=== PATIENT | female | born 1975 | race Caucasian/White ===

== ENCOUNTER 2021-10-29 17:44 | Emergency (ER) | payer BC ==
[2021-10-29] MEDS ORDERED: Sodium Chloride 0.9% 10 ML Syringe FLUSH PRN (17:55)
[2021-10-29] MEDS ORDERED: Aspirin 81 MG Tab.Chew PO ONE (17:55)
[2021-10-29 18:56] LABS: CORONAVIRUS COVID-19 NAA NEGATIVE (NEGATIVE)
== END 2021-10-29 20:39 | disposition home or self-care (01) ==
LOC: JD.ED 17:44
DX: R07.89 Other chest pain (principal); Z20.822 Contact with and (suspected) exposure to COVID-19
CPT/HCPCS: 0241U; 36415; 71045; 80053; 83735; 83880; 84484; 84702; 85025; 85379; 85610; 93005; 94762; 99285; A9270; 93010

== ENCOUNTER 2025-08-07 12:06 | Emergency (ER) | payer BC, OTHER ==
[2025-08-07] MEDS ORDERED: Sodium Chloride 0.9% 10 ML Syringe FLUSH PRN (12:33)
[2025-08-07 12:54] LABS: BASOPHILS ABSOLUTE AUTO 0.1 K/mm3 (0.0-0.2); BASOPHILS PERCENT AUTO 1.1 % (0.0-1.0); EOSINOPHILS ABSOLUTE AUTO 0.1 K/mm3 (0.0-0.4); EOSINOPHILS PERCENT AUTO 1.5 % (0.0-6.0); IMMATURE GRAN ABSOLUTE AUTO 0.06 K/mm3 (0.00-0.05); IMMATURE GRAN PERCENT AUTO 0.8 % (0.0-0.4); LYMPHOCYTES ABSOLUTE AUTO 2.1 K/mm3 (1.0-4.8); LYMPHOCYTES PERCENT AUTO 26.6 % (24.0-44.0); MEAN PLATELET VOLUME 8.6 fl (9.4-12.3); MONOCYTES ABSOLUTE AUTO 0.9 K/mm3 (0.0-0.8); MONOCYTES PERCENT AUTO 11.3 % (0.0-8.0); NEUTROPHILS ABSOLUTE AUTO 4.6 K/mm3 (1.8-7.7); NEUTROPHILS PERCENT AUTO 58.7 % (41.0-71.0); NRBC ABSOLUTE 0.00 (0.00-0.02); NRBC PERCENT 0.0 % (0.0-0.2); PLATELET COUNT,PLT 255 K/mm3 (150-400); RED BLOOD CELL COUNT 4.40 M/mm3 (4.10-5.30); WHITE BLOOD CELL COUNT,WBC 7.89 K/mm3 (3.9-11.3)
[2025-08-07 12:55] LABS: APPEARANCE,URINE CLEAR (Clear); GLUCOSE,URINE NEGATIVE (Negative); OCCULT BLOOD,URINE NEGATIVE (Negative)
[2025-08-07] MEDS: Iopamidol 612 MG/ML 100 ML Bottle IVPUSH ONE (13:29)
[2025-08-07] MEDS: Sodium Chloride 0.9% 10 ML Syringe FLUSH ONE (13:29)
[2025-08-07 13:30] LABS: A/G RATIO 1.0 (1-2); ALANINE AMINOTRANSFERASE,ALT 28.0 U/L (14-59); ASPARTATE AMNIOTRANSFERASE,AST 20.0 U/L (15-37); BILIRUBIN TOTAL 0.4 mg/dL (0.2-1.0); BLOOD UREA NITROGEN,BUN 9.0 mg/dL (7-18); CARBON DIOXIDE,CO2 27.0 mEq/L (21-32); CHLORIDE,CL 105.0 mEq/L (98-107); CREATININE 0.7 mg/dL (0.55-1.02); EST CRCL DRUG DOSING (CG) 86.52 mL/min; ESTIMATED GFR 105.0 mL/min (>60); GLUCOSE RANDOM 97.0 mg/dL (70-99); POTASSIUM,K 3.9 mEq/L (3.5-5.1); PROTEIN TOTAL,TP 7.1 g/dl (6.4-8.2); SODIUM,NA 139.0 mEq/L (136-145)
== END 2025-08-07 15:00 | disposition home or self-care (01) ==
LOC: JD.ED 12:06
DX: K59.01 Slow transit constipation (principal)
CPT/HCPCS: 36415; 74177; 80053; 81003; 81025; 85025; 86140; 99284; Q9967